=== PATIENT | male | born 1990 | race Caucasian/White ===

== ENCOUNTER 2018-04-07 23:41 | Inpatient (IN) | payer OTHER ==
[2018-04-08] MEDS ORDERED: DEXTROSE 50% 50 ML SYRINGE IV ×2 (01:00)
[2018-04-08] MEDS ORDERED: GLUCAGON 1 MG INJ IM (01:00)
[2018-04-08] MEDS ORDERED: PENDING SANTYL ORDER FOR WOUND CARE XX (01:00)
[2018-04-08] MEDS ORDERED: GLUCOSE GEL 15 GRAM TUBE BUCCAL (01:00)
[2018-04-08] MEDS ORDERED: ACETAMINOPHEN 325 MG TAB PO ×3 (01:00→08:00)
[2018-04-08] MEDS ORDERED: GLUCOSE GEL 15 GRAM TUBE PO ×2 (01:00)
[2018-04-08] MEDS: INSULIN ASPART [NOVOLOG] 3 ML PEN SC ×5 (01:10→20:57)
[2018-04-08] MEDS: HYDROCODONE/APAP (5/325) TAB PO (02:07)
[2018-04-08] MEDS: ACCU-CHEK XX (03:00)
[2018-04-08] MEDS ORDERED: ALBUTEROL/IPRATROPIUM (NEB) 3 ML AMP HHN (08:00)
[2018-04-08] MEDS ORDERED: VANCOMYCIN IV PER PHARMACY XX (08:00)
[2018-04-08] MEDS ORDERED: NACL 0.9% 3 ML SYG IV (08:00)
[2018-04-08] MEDS: ENOXAPARIN 30 MG/0.3 ML SYG SC (09:20)
[2018-04-08] MEDS: CEFEPIME 1GM/50 ML (PMX) 50 ML IVPB ×2 (09:20→20:55)
[2018-04-08 09:32] LABS: ADD MAN DIFF? NO
[2018-04-08 09:41] LABS: BASOPHILS % 0.5 % (0.0-2.0); EOSINOPHILS # 0.2 10^3/ul (0.0-0.5); EOSINOPHILS % 3.4 % (0.0-7.0); HEMATOCRIT 38.5 % (42.0-52.0); HEMOGLOBIN 13.2 g/dl (14.0-18.0); LYMPHOCYTES # 2.5 10^3/ul (0.8-2.9); LYMPHOCYTES % 38.9 % (15.0-51.0); MEAN CORPUSCULAR HGB CONC 34.3 g/dl (32.0-37.0); MEAN CORPUSCULAR VOLUME 81.6 fl (82.0-101.0); MEAN PLATELET VOLUME 8.8 fl (7.4-10.4); MONOCYTE # 0.6 10^3/ul (0.3-0.9); MONOCYTES % 8.9 % (0.0-11.0); NEUTROPHIL # 3.1 10^3/ul (1.6-7.5); PLATELET COUNT 272 10^3/UL (140-415); RED BLOOD COUNT 4.72 10^6/ul (4.70-6.10); RED CELL DISTRIBUTION WIDTH 12.9 % (11.5-14.5)
[2018-04-08 09:41] LABS: WHITE BLOOD COUNT 6.5 10^3/ul (4.8-10.8)
[2018-04-08] MEDS ORDERED: VANCOMYCIN 2 GM in SOD CHLORIDE 0.9% 500 ML IVPB (10:00)
[2018-04-08 10:07] LABS: ALANINE AMINOTRANSFERASE 26 IU/L (13-69); ALBUMIN 3.8 g/dl (3.3-4.9); ALBUMIN/GLOBULIN RATIO 0.97; ALKALINE PHOSPHATASE 68 IU/L (42-121); ANION GAP 13 (8-16); ASPARTATE AMINO TRANSFERASE 20 IU/L (15-46); BILIRUBIN,INDIRECT 0.5 mg/dl (0-1.1); BILIRUBIN,TOTAL 0.5 mg/dl (0.2-1.3); BLOOD UREA NITROGEN 14 mg/dl (7-20); CALCIUM 9.6 mg/dl (8.4-10.2); CARBON DIOXIDE 31 mmol/L (21-31); CHLORIDE 100 mmol/L (97-110); CHOL/HDL RATIO 5.8 RATIO; CHOLESTEROL 157 mg/dl (100-200); CREATININE 1.07 mg/dl (0.61-1.24); GLUCOSE 213 mg/dl (70-220); HDL CHOLESTEROL 27 mg/dl (28-63); LDL CHOLESTEROL,CALCULATED 77 mg/dl; POTASSIUM 4.9 mmol/L (3.5-5.1); SODIUM 139 mmol/L (135-144); TOTAL PROTEIN 7.7 g/dl (6.1-8.1); TRIGLYCERIDES 264 mg/dl (0-149)
[2018-04-08 10:15] LABS: HEMOGLOBIN A1C 11.1 % (0-5.9)
[2018-04-08] MEDS: VANCOMYCIN 2 GM in SOD CHLORIDE 0.9% 500 ML IVPB (11:19)
[2018-04-08] MEDS: ATORVASTATIN 20 MG TAB PO (20:55)
[2018-04-08] MEDS: VANCOMYCIN 1 GM 250 ML IVPB (22:18)
[2018-04-09] MEDS: ACCU-CHEK XX (02:13)
[2018-04-09] MEDS: VANCOMYCIN 1 GM 250 ML IVPB ×3 (05:47→21:58)
[2018-04-09 06:13] LABS: ADD MAN DIFF? NO
[2018-04-09 06:23] LABS: BASOPHILS % 0.4 % (0.0-2.0); EOSINOPHILS # 0.2 10^3/ul (0.0-0.5); EOSINOPHILS % 2.4 % (0.0-7.0); HEMATOCRIT 37.1 % (42.0-52.0); HEMOGLOBIN 12.8 g/dl (14.0-18.0); LYMPHOCYTES # 2.4 10^3/ul (0.8-2.9); MEAN CORPUSCULAR HEMOGLOBIN 27.9 pg (29.0-33.0); MEAN CORPUSCULAR HGB CONC 34.5 g/dl (32.0-37.0); MEAN PLATELET VOLUME 9.3 fl (7.4-10.4); MONOCYTE # 0.6 10^3/ul (0.3-0.9); MONOCYTES % 6.9 % (0.0-11.0); NEUTROPHIL # 5.1 10^3/ul (1.6-7.5); NEUTROPHILS % 61.1 % (39.0-77.0); PLATELET COUNT 284 10^3/UL (140-415); RED BLOOD COUNT 4.58 10^6/ul (4.70-6.10)
[2018-04-09 06:23] LABS: WHITE BLOOD COUNT 8.4 10^3/ul (4.8-10.8)
[2018-04-09 06:36] LABS: HEMOGLOBIN A1C 10.9 % (0-5.9)
[2018-04-09 06:46] LABS: ALANINE AMINOTRANSFERASE 28 IU/L (13-69); ALBUMIN 3.8 g/dl (3.3-4.9); ALBUMIN/GLOBULIN RATIO 0.95; ALKALINE PHOSPHATASE 68 IU/L (42-121); ANION GAP 12 (8-16); ASPARTATE AMINO TRANSFERASE 20 IU/L (15-46); BILIRUBIN,INDIRECT 0.3 mg/dl (0-1.1); BILIRUBIN,TOTAL 0.3 mg/dl (0.2-1.3); BLOOD UREA NITROGEN 20 mg/dl (7-20); CALCIUM 9.4 mg/dl (8.4-10.2); CARBON DIOXIDE 28 mmol/L (21-31); CHLORIDE 103 mmol/L (97-110); CHOL/HDL RATIO 5.5 RATIO; CHOLESTEROL 151 mg/dl (100-200); CREATININE 1.07 mg/dl (0.61-1.24); GLUCOSE 171 mg/dl (70-220); HDL CHOLESTEROL 27 mg/dl (28-63); LDL CHOLESTEROL,CALCULATED 65 mg/dl; MAGNESIUM 1.6 mg/dl (1.7-2.5); PHOSPHORUS 4.4 mg/dl (2.5-4.9); POTASSIUM 4.3 mmol/L (3.5-5.1); SODIUM 139 mmol/L (135-144); TOTAL PROTEIN 7.8 g/dl (6.1-8.1); TRIGLYCERIDES 297 mg/dl (0-149)
[2018-04-09] MEDS: CEFEPIME 1GM/50 ML (PMX) 50 ML IVPB ×2 (08:14→20:29)
[2018-04-09] MEDS: INSULIN ASPART [NOVOLOG] 3 ML PEN SC ×4 (08:15→21:00)
[2018-04-09] MEDS: ENOXAPARIN 30 MG/0.3 ML SYG SC (08:16)
[2018-04-09] MEDS: HYDROCODONE/APAP (5/325) TAB PO (08:25)
[2018-04-09] MEDS: INSULIN GLARGINE [LANtus] 3 ML PEN SC (10:30)
[2018-04-09] MEDS: MAGNESIUM OXIDE 400 MG TAB PO (10:30)
[2018-04-09] MEDS ORDERED: COLLAGENASE 5 GM (UD JAR) TOP (13:30)
[2018-04-09 13:44] LABS: VANCOMYCIN,TROUGH 14.9 ug/ml (10.0-20.0)
[2018-04-09] MEDS: ATORVASTATIN 20 MG TAB PO (20:30)
[2018-04-10] MEDS: ACCU-CHEK XX (02:00)
[2018-04-10] MEDS: VANCOMYCIN 1 GM 250 ML IVPB ×3 (05:35→22:03)
[2018-04-10 06:23] LABS: ADD MAN DIFF? NO
[2018-04-10 06:34] LABS: WHITE BLOOD COUNT 7.4 10^3/ul (4.8-10.8)
[2018-04-10 06:34] LABS: BASOPHILS % 0.5 % (0.0-2.0); EOSINOPHILS # 0.2 10^3/ul (0.0-0.5); EOSINOPHILS % 3.1 % (0.0-7.0); HEMATOCRIT 36.9 % (42.0-52.0); HEMOGLOBIN 12.7 g/dl (14.0-18.0); LYMPHOCYTES # 2.7 10^3/ul (0.8-2.9); LYMPHOCYTES % 35.7 % (15.0-51.0); MEAN CORPUSCULAR HEMOGLOBIN 27.7 pg (29.0-33.0); MEAN CORPUSCULAR HGB CONC 34.4 g/dl (32.0-37.0); MEAN CORPUSCULAR VOLUME 80.4 fl (82.0-101.0); MEAN PLATELET VOLUME 8.9 fl (7.4-10.4); MONOCYTE # 0.6 10^3/ul (0.3-0.9); MONOCYTES % 7.9 % (0.0-11.0); NEUTROPHIL # 3.9 10^3/ul (1.6-7.5); NEUTROPHILS % 52.5 % (39.0-77.0); PLATELET COUNT 272 10^3/UL (140-415); RED BLOOD COUNT 4.59 10^6/ul (4.70-6.10); RED CELL DISTRIBUTION WIDTH 12.8 % (11.5-14.5)
[2018-04-10 07:07] LABS: ANION GAP 13 (8-16); BLOOD UREA NITROGEN 18 mg/dl (7-20); CALCIUM 9.4 mg/dl (8.4-10.2); CARBON DIOXIDE 26 mmol/L (21-31); CHLORIDE 104 mmol/L (97-110); CREATININE 0.99 mg/dl (0.61-1.24); GLUCOSE 118 mg/dl (70-220); POTASSIUM 4.1 mmol/L (3.5-5.1); SODIUM 139 mmol/L (135-144)
[2018-04-10] MEDS: INSULIN ASPART [NOVOLOG] 3 ML PEN SC ×4 (08:00→20:55)
[2018-04-10] MEDS: CEFEPIME 1GM/50 ML (PMX) 50 ML IVPB ×2 (08:11→20:56)
[2018-04-10] MEDS: COLLAGENASE 5 GM (UD JAR) TOP (08:11)
[2018-04-10] MEDS: INSULIN GLARGINE [LANtus] 3 ML PEN SC (08:12)
[2018-04-10] MEDS: ENOXAPARIN 30 MG/0.3 ML SYG SC (08:13)
[2018-04-10] MEDS: HYDROCODONE/APAP (5/325) TAB PO (19:57)
[2018-04-10] MEDS: ATORVASTATIN 20 MG TAB PO (20:56)
[2018-04-11] MEDS: ACCU-CHEK XX (01:06)
[2018-04-11 05:53] LABS: ADD MAN DIFF? NO
[2018-04-11 05:55] LABS: BASOPHILS % 0.6 % (0.0-2.0); EOSINOPHILS # 0.3 10^3/ul (0.0-0.5); EOSINOPHILS % 3.8 % (0.0-7.0); HEMOGLOBIN 12.6 g/dl (14.0-18.0); LYMPHOCYTES # 2.8 10^3/ul (0.8-2.9); MEAN CORPUSCULAR HEMOGLOBIN 27.6 pg (29.0-33.0); MEAN CORPUSCULAR HGB CONC 34.1 g/dl (32.0-37.0); MEAN CORPUSCULAR VOLUME 81.1 fl (82.0-101.0); MEAN PLATELET VOLUME 8.9 fl (7.4-10.4); MONOCYTE # 0.7 10^3/ul (0.3-0.9); MONOCYTES % 9.7 % (0.0-11.0); NEUTROPHIL # 3.4 10^3/ul (1.6-7.5); NEUTROPHILS % 46.6 % (39.0-77.0); PLATELET COUNT 265 10^3/UL (140-415); RED BLOOD COUNT 4.56 10^6/ul (4.70-6.10)
[2018-04-11 05:55] LABS: WHITE BLOOD COUNT 7.2 10^3/ul (4.8-10.8)
[2018-04-11 06:04] LABS: MAGNESIUM 1.7 mg/dl (1.7-2.5)
[2018-04-11 06:04] LABS: PHOSPHORUS 4.3 mg/dl (2.5-4.9)
[2018-04-11] MEDS: VANCOMYCIN 1 GM 250 ML IVPB ×3 (06:05→22:17)
[2018-04-11 06:07] LABS: ANION GAP 15 (8-16); BLOOD UREA NITROGEN 19 mg/dl (7-20); CALCIUM 9.5 mg/dl (8.4-10.2); CARBON DIOXIDE 28 mmol/L (21-31); CHLORIDE 103 mmol/L (97-110); CREATININE 1.11 mg/dl (0.61-1.24); GLUCOSE 120 mg/dl (70-220); SODIUM 141 mmol/L (135-144)
[2018-04-11] MEDS: INSULIN ASPART [NOVOLOG] 3 ML PEN SC ×4 (08:00→21:14)
[2018-04-11] MEDS: INSULIN GLARGINE [LANtus] 3 ML PEN SC ×2 (08:00→08:08)
[2018-04-11] MEDS: ENOXAPARIN 30 MG/0.3 ML SYG SC (08:09)
[2018-04-11] MEDS: COLLAGENASE 5 GM (UD JAR) TOP (08:12)
[2018-04-11] MEDS: CEFEPIME 1GM/50 ML (PMX) 50 ML IVPB ×2 (09:18→21:13)
[2018-04-11 09:51] LABS: IRON 66 ug/dl (35-150)
[2018-04-11 10:00] LABS: % IRON SATURATION 23 % SAT (22-52); TOTAL IRON BINDING CAPACITY 292 ug/dl (241-421)
[2018-04-11] MEDS: ATORVASTATIN 20 MG TAB PO (21:13)
[2018-04-11 22:01] LABS: VANCOMYCIN,TROUGH 13.4 ug/ml (10.0-20.0)
[2018-04-12] MEDS: HYDROCODONE/APAP (5/325) TAB PO (01:05)
[2018-04-12] MEDS: ACCU-CHEK XX (02:00)
[2018-04-12 05:39] LABS: ADD MAN DIFF? NO
[2018-04-12 05:51] LABS: WHITE BLOOD COUNT 7.2 10^3/ul (4.8-10.8)
[2018-04-12 05:51] LABS: BASOPHILS % 0.6 % (0.0-2.0); EOSINOPHILS # 0.2 10^3/ul (0.0-0.5); EOSINOPHILS % 2.8 % (0.0-7.0); HEMOGLOBIN 12.3 g/dl (14.0-18.0); LYMPHOCYTES # 2.9 10^3/ul (0.8-2.9); LYMPHOCYTES % 39.8 % (15.0-51.0); MEAN CORPUSCULAR HEMOGLOBIN 27.6 pg (29.0-33.0); MEAN CORPUSCULAR HGB CONC 34.2 g/dl (32.0-37.0); MEAN CORPUSCULAR VOLUME 80.7 fl (82.0-101.0); MEAN PLATELET VOLUME 8.9 fl (7.4-10.4); MONOCYTE # 0.6 10^3/ul (0.3-0.9); MONOCYTES % 8.3 % (0.0-11.0); NEUTROPHIL # 3.5 10^3/ul (1.6-7.5); NEUTROPHILS % 48.4 % (39.0-77.0); PLATELET COUNT 282 10^3/UL (140-415); RED BLOOD COUNT 4.46 10^6/ul (4.70-6.10); RED CELL DISTRIBUTION WIDTH 12.6 % (11.5-14.5)
[2018-04-12] MEDS: VANCOMYCIN 1 GM 250 ML IVPB (06:07)
[2018-04-12 06:10] LABS: MAGNESIUM 1.7 mg/dl (1.7-2.5)
[2018-04-12 06:10] LABS: PHOSPHORUS 4.5 mg/dl (2.5-4.9)
[2018-04-12 06:17] LABS: ANION GAP 9 (8-16); BLOOD UREA NITROGEN 19 mg/dl (7-20); CALCIUM 9.2 mg/dl (8.4-10.2); CARBON DIOXIDE 28 mmol/L (21-31); CHLORIDE 106 mmol/L (97-110); GLUCOSE 139 mg/dl (70-220); POTASSIUM 4.2 mmol/L (3.5-5.1); SODIUM 139 mmol/L (135-144)
[2018-04-12] MEDS: INSULIN ASPART [NOVOLOG] 3 ML PEN SC ×4 (08:00→21:00)
[2018-04-12] MEDS: INSULIN GLARGINE [LANtus] 3 ML PEN SC (08:22)
[2018-04-12] MEDS: ONDANSETRON 4 MG INJ IV (08:42)
[2018-04-12] MEDS: CEFEPIME 1GM/50 ML (PMX) 50 ML IVPB ×2 (09:21→21:14)
[2018-04-12] MEDS: COLLAGENASE 5 GM (UD JAR) TOP (09:21)
[2018-04-12] MEDS: ENOXAPARIN 30 MG/0.3 ML SYG SC (09:21)
[2018-04-12] MEDS: BISACODYL (EC) 5 MG TAB PO (14:10)
[2018-04-12] MEDS: VANCOMYCIN 1.25 GM in SOD CHLORIDE 0.9% 250 ML IVPB ×2 (15:37→23:01)
[2018-04-12] MEDS: POLYETHYLENE GLYCOL 17 GM PACKET PO (21:14)
[2018-04-12] MEDS: ATORVASTATIN 20 MG TAB PO (21:14)
[2018-04-13] MEDS: ACCU-CHEK XX (01:52)
[2018-04-13 05:53] LABS: ADD MAN DIFF? NO
[2018-04-13 05:58] LABS: WHITE BLOOD COUNT 7.7 10^3/ul (4.8-10.8)
[2018-04-13 05:58] LABS: BASOPHILS % 0.3 % (0.0-2.0); EOSINOPHILS # 0.2 10^3/ul (0.0-0.5); EOSINOPHILS % 2.5 % (0.0-7.0); HEMATOCRIT 37.1 % (42.0-52.0); HEMOGLOBIN 12.8 g/dl (14.0-18.0); LYMPHOCYTES # 2.9 10^3/ul (0.8-2.9); LYMPHOCYTES % 38.2 % (15.0-51.0); MEAN CORPUSCULAR HEMOGLOBIN 27.8 pg (29.0-33.0); MEAN CORPUSCULAR HGB CONC 34.5 g/dl (32.0-37.0); MEAN CORPUSCULAR VOLUME 80.7 fl (82.0-101.0); MEAN PLATELET VOLUME 8.7 fl (7.4-10.4); MONOCYTE # 0.6 10^3/ul (0.3-0.9); MONOCYTES % 7.3 % (0.0-11.0); NEUTROPHIL # 3.9 10^3/ul (1.6-7.5); NEUTROPHILS % 51.4 % (39.0-77.0); PLATELET COUNT 293 10^3/UL (140-415); RED CELL DISTRIBUTION WIDTH 12.7 % (11.5-14.5)
[2018-04-13 06:19] LABS: MAGNESIUM 1.6 mg/dl (1.7-2.5)
[2018-04-13 06:24] LABS: ANION GAP 13 (8-16); BLOOD UREA NITROGEN 15 mg/dl (7-20); CALCIUM 9.3 mg/dl (8.4-10.2); CARBON DIOXIDE 28 mmol/L (21-31); CHLORIDE 103 mmol/L (97-110); CREATININE 1.04 mg/dl (0.61-1.24); GLUCOSE 118 mg/dl (70-220); POTASSIUM 3.9 mmol/L (3.5-5.1); SODIUM 140 mmol/L (135-144)
[2018-04-13 06:26] LABS: INR 1.03; PROTIME 13.6 Sec (11.9-14.9); PT RATIO 1.1
[2018-04-13 06:27] LABS: PARTIAL THROMBOPLASTIN TIME 32.2 Sec (25.0-35.0)
[2018-04-13] MEDS: VANCOMYCIN 1.25 GM in SOD CHLORIDE 0.9% 250 ML IVPB ×2 (06:50→14:11)
[2018-04-13] MEDS ORDERED: LIDOCAINE 1% (MPF) 30 ML INJ (06:59)
[2018-04-13] MEDS ORDERED: HYDROmorphONE 1 MG/5 ML IV SYRINGE IV ×3 (07:30)
[2018-04-13] MEDS ORDERED: LABETALOL HCL 20MG INJ IV (07:30)
[2018-04-13] MEDS ORDERED: FENTAnyl 50 MCG/ML VIAL IV ×3 (07:30)
[2018-04-13] MEDS ORDERED: PROCHLORPERAZINE 10 MG INJ IV (07:30)
[2018-04-13] MEDS ORDERED: MEPERIDINE 25 MG INJ IV (07:30)
[2018-04-13] MEDS ORDERED: DIPHENHYDRAMINE 50 MG INJ IV (07:30)
[2018-04-13] MEDS ORDERED: ONDANSETRON 4 MG INJ IV (07:30)
[2018-04-13] MEDS ORDERED: hydrALAzine 20 MG INJ IV (07:30)
[2018-04-13] MEDS ORDERED: MIDAZOLAM 1 MG/ML 2 ML INJ (07:55)
[2018-04-13] MEDS ORDERED: PROPOFOL 20 ML ×2 (07:55→08:07)
[2018-04-13] MEDS ORDERED: LIDOCAINE 2% (SDV) 5 ML INJ (07:55)
[2018-04-13] MEDS: INSULIN ASPART [NOVOLOG] 3 ML PEN SC ×4 (08:00→20:40)
[2018-04-13] MEDS: INSULIN GLARGINE [LANtus] 3 ML PEN SC ×2 (08:00→10:17)
[2018-04-13] MEDS ORDERED: METOCLOPRAMIDE 10 MG INJ (08:03)
[2018-04-13] MEDS ORDERED: ONDANSETRON 4 MG INJ (08:03)
[2018-04-13] MEDS ORDERED: BUPIVACAINE 0.25% (MPF) 30 ML INJ (08:03)
[2018-04-13] MEDS ORDERED: FAMOTIDINE 20 MG INJ (08:03)
[2018-04-13] MEDS ORDERED: FENTAnyl 50 MCG/ML VIAL (08:21)
[2018-04-13] MEDS: COLLAGENASE 5 GM (UD JAR) TOP (08:34)
[2018-04-13] MEDS: POLYETHYLENE GLYCOL 17 GM PACKET PO ×2 (08:34→20:38)
[2018-04-13] MEDS ORDERED: EPHEDrine SULFATE 50 MG/5 ML SYG (08:48)
[2018-04-13] MEDS: ENOXAPARIN 30 MG/0.3 ML SYG SC (09:00)
[2018-04-13] MEDS: POLYMYXIN/BACITRACIN 1L IRRIG (09:04)
[2018-04-13] MEDS: CEFEPIME 1GM/50 ML (PMX) 50 ML IVPB ×2 (10:16→20:38)
[2018-04-13] MEDS: HYDROCODONE/APAP (5/325) TAB PO (10:18)
[2018-04-13] MEDS: MAGNESIUM SULFATE 2 GM/50 ML 50 ML IVPB (17:55)
[2018-04-13] MEDS: ATORVASTATIN 20 MG TAB PO (20:38)
[2018-04-13 23:18] LABS: VANCOMYCIN,TROUGH 24.4 ug/ml (10.0-20.0)
[2018-04-14] MEDS: HYDROCODONE/APAP (5/325) TAB PO ×3 (01:17→22:00)
[2018-04-14] MEDS: ACCU-CHEK XX (02:00)
[2018-04-14 05:54] LABS: ADD MAN DIFF? NO
[2018-04-14 05:55] LABS: BASOPHILS % 0.6 % (0.0-2.0); EOSINOPHILS # 0.2 10^3/ul (0.0-0.5); EOSINOPHILS % 2.2 % (0.0-7.0); HEMATOCRIT 33.8 % (42.0-52.0); HEMOGLOBIN 11.6 g/dl (14.0-18.0); LYMPHOCYTES # 2.5 10^3/ul (0.8-2.9); LYMPHOCYTES % 34.6 % (15.0-51.0); MEAN CORPUSCULAR HEMOGLOBIN 27.6 pg (29.0-33.0); MEAN CORPUSCULAR HGB CONC 34.3 g/dl (32.0-37.0); MEAN CORPUSCULAR VOLUME 80.3 fl (82.0-101.0); MEAN PLATELET VOLUME 8.9 fl (7.4-10.4); MONOCYTE # 0.6 10^3/ul (0.3-0.9); MONOCYTES % 8.5 % (0.0-11.0); NEUTROPHIL # 3.9 10^3/ul (1.6-7.5); NEUTROPHILS % 53.8 % (39.0-77.0); PLATELET COUNT 258 10^3/UL (140-415); RED BLOOD COUNT 4.21 10^6/ul (4.70-6.10); RED CELL DISTRIBUTION WIDTH 12.9 % (11.5-14.5)
[2018-04-14 05:55] LABS: WHITE BLOOD COUNT 7.2 10^3/ul (4.8-10.8)
[2018-04-14 06:15] LABS: ANION GAP 11 (8-16); BLOOD UREA NITROGEN 17 mg/dl (7-20); CALCIUM 8.9 mg/dl (8.4-10.2); CARBON DIOXIDE 29 mmol/L (21-31); CHLORIDE 104 mmol/L (97-110); CREATININE 1.47 mg/dl (0.61-1.24); GLUCOSE 143 mg/dl (70-220); POTASSIUM 3.9 mmol/L (3.5-5.1); SODIUM 140 mmol/L (135-144)
[2018-04-14 06:17] LABS: PHOSPHORUS 4.4 mg/dl (2.5-4.9)
[2018-04-14 06:17] LABS: MAGNESIUM 1.9 mg/dl (1.7-2.5)
[2018-04-14] MEDS: INSULIN ASPART [NOVOLOG] 3 ML PEN SC ×4 (08:00→20:41)
[2018-04-14] MEDS: INSULIN GLARGINE [LANtus] 3 ML PEN SC (08:06)
[2018-04-14] MEDS: ENOXAPARIN 30 MG/0.3 ML SYG SC (08:07)
[2018-04-14] MEDS: POLYETHYLENE GLYCOL 17 GM PACKET PO ×2 (08:07→20:39)
[2018-04-14] MEDS: CEFEPIME 1GM/50 ML (PMX) 50 ML IVPB ×3 (08:45→20:39)
[2018-04-14] MEDS: COLLAGENASE 5 GM (UD JAR) TOP (09:00)
[2018-04-14] MEDS ORDERED: VANCOMYCIN 1.5 GM in SOD CHLORIDE 0.9% 250 ML IVPB (11:00)
[2018-04-14] MEDS: VANCOMYCIN 1 GM 250 ML IVPB (11:18)
[2018-04-14] MEDS: SOD CHLORIDE 0.9% 1,000 ML IV (17:06)
[2018-04-14] MEDS: ATORVASTATIN 20 MG TAB PO (20:39)
[2018-04-15] MEDS: VANCOMYCIN 1 GM 250 ML IVPB ×2 (00:05→12:10)
[2018-04-15] MEDS: ACCU-CHEK XX (01:56)
[2018-04-15 06:11] LABS: ADD MAN DIFF? NO
[2018-04-15 06:19] LABS: BASOPHILS % 0.5 % (0.0-2.0); EOSINOPHILS # 0.2 10^3/ul (0.0-0.5); EOSINOPHILS % 3.1 % (0.0-7.0); HEMATOCRIT 34.6 % (42.0-52.0); HEMOGLOBIN 11.9 g/dl (14.0-18.0); LYMPHOCYTES # 2.8 10^3/ul (0.8-2.9); LYMPHOCYTES % 37.6 % (15.0-51.0); MEAN CORPUSCULAR HEMOGLOBIN 27.8 pg (29.0-33.0); MEAN CORPUSCULAR HGB CONC 34.4 g/dl (32.0-37.0); MEAN CORPUSCULAR VOLUME 80.8 fl (82.0-101.0); MEAN PLATELET VOLUME 8.9 fl (7.4-10.4); MONOCYTE # 0.7 10^3/ul (0.3-0.9); MONOCYTES % 8.9 % (0.0-11.0); NEUTROPHIL # 3.6 10^3/ul (1.6-7.5); NEUTROPHILS % 49.6 % (39.0-77.0); PLATELET COUNT 281 10^3/UL (140-415); RED BLOOD COUNT 4.28 10^6/ul (4.70-6.10); RED CELL DISTRIBUTION WIDTH 12.8 % (11.5-14.5)
[2018-04-15 06:19] LABS: WHITE BLOOD COUNT 7.3 10^3/ul (4.8-10.8)
[2018-04-15 06:48] LABS: ANION GAP 8 (8-16); BLOOD UREA NITROGEN 18 mg/dl (7-20); CALCIUM 8.8 mg/dl (8.4-10.2); CARBON DIOXIDE 27 mmol/L (21-31); CHLORIDE 108 mmol/L (97-110); CREATININE 1.23 mg/dl (0.61-1.24); GLUCOSE 169 mg/dl (70-220); POTASSIUM 4.1 mmol/L (3.5-5.1); SODIUM 139 mmol/L (135-144)
[2018-04-15 07:02] LABS: MAGNESIUM 1.6 mg/dl (1.7-2.5)
[2018-04-15] MEDS: INSULIN ASPART [NOVOLOG] 3 ML PEN SC ×4 (08:18→23:06)
[2018-04-15] MEDS: ENOXAPARIN 30 MG/0.3 ML SYG SC (08:19)
[2018-04-15] MEDS: INSULIN GLARGINE [LANtus] 3 ML PEN SC (08:19)
[2018-04-15] MEDS: CEFEPIME 1GM/50 ML (PMX) 50 ML IVPB ×2 (08:20→23:04)
[2018-04-15] MEDS: CHOLECALCIFEROL 1,000 UNIT TAB PO (08:20)
[2018-04-15] MEDS: POLYETHYLENE GLYCOL 17 GM PACKET PO ×2 (08:20→23:04)
[2018-04-15] MEDS: COLLAGENASE 5 GM (UD JAR) TOP (08:20)
[2018-04-15] MEDS: ONDANSETRON 4 MG INJ IV (10:43)
[2018-04-15] MEDS: MAGNESIUM SULFATE 2 GM/50 ML 50 ML IVPB (10:43)
[2018-04-15] MEDS: ATORVASTATIN 20 MG TAB PO (23:04)
[2018-04-16] MEDS: VANCOMYCIN 1 GM 250 ML IVPB ×2 (00:29→13:55)
[2018-04-16] MEDS: ACCU-CHEK XX (02:00)
[2018-04-16 06:09] LABS: ADD MAN DIFF? NO
[2018-04-16 06:26] LABS: BASOPHILS % 0.5 % (0.0-2.0); EOSINOPHILS # 0.2 10^3/ul (0.0-0.5); EOSINOPHILS % 2.6 % (0.0-7.0); HEMATOCRIT 33.8 % (42.0-52.0); HEMOGLOBIN 11.9 g/dl (14.0-18.0); LYMPHOCYTES # 2.4 10^3/ul (0.8-2.9); LYMPHOCYTES % 31.3 % (15.0-51.0); MEAN CORPUSCULAR HEMOGLOBIN 28.4 pg (29.0-33.0); MEAN CORPUSCULAR HGB CONC 35.2 g/dl (32.0-37.0); MEAN CORPUSCULAR VOLUME 80.7 fl (82.0-101.0); MEAN PLATELET VOLUME 8.9 fl (7.4-10.4); MONOCYTE # 0.6 10^3/ul (0.3-0.9); MONOCYTES % 7.8 % (0.0-11.0); NEUTROPHIL # 4.5 10^3/ul (1.6-7.5); NEUTROPHILS % 57.5 % (39.0-77.0); PLATELET COUNT 271 10^3/UL (140-415); RED BLOOD COUNT 4.19 10^6/ul (4.70-6.10); RED CELL DISTRIBUTION WIDTH 12.8 % (11.5-14.5)
[2018-04-16 06:26] LABS: WHITE BLOOD COUNT 7.8 10^3/ul (4.8-10.8)
[2018-04-16 06:54] LABS: ANION GAP 11 (8-16); BLOOD UREA NITROGEN 16 mg/dl (7-20); CALCIUM 8.9 mg/dl (8.4-10.2); CARBON DIOXIDE 25 mmol/L (21-31); CHLORIDE 109 mmol/L (97-110); CREATININE 1.19 mg/dl (0.61-1.24); GLUCOSE 111 mg/dl (70-220); POTASSIUM 4.1 mmol/L (3.5-5.1); SODIUM 141 mmol/L (135-144)
[2018-04-16 07:18] LABS: MAGNESIUM 1.7 mg/dl (1.7-2.5)
[2018-04-16] MEDS: INSULIN ASPART [NOVOLOG] 3 ML PEN SC ×4 (08:00→21:00)
[2018-04-16] MEDS: INSULIN GLARGINE [LANtus] 3 ML PEN SC (08:28)
[2018-04-16] MEDS: ENOXAPARIN 30 MG/0.3 ML SYG SC (08:29)
[2018-04-16] MEDS: CEFEPIME 1GM/50 ML (PMX) 50 ML IVPB ×2 (08:29→21:19)
[2018-04-16] MEDS: CHOLECALCIFEROL 1,000 UNIT TAB PO (08:29)
[2018-04-16] MEDS: COLLAGENASE 5 GM (UD JAR) TOP (09:00)
[2018-04-16] MEDS: POLYETHYLENE GLYCOL 17 GM PACKET PO ×2 (09:00→21:19)
[2018-04-16 14:13] LABS: VANCOMYCIN,TROUGH 14.6 ug/ml (10.0-20.0)
[2018-04-16] MEDS: ATORVASTATIN 20 MG TAB PO (21:19)
[2018-04-17] MEDS: VANCOMYCIN 1 GM 250 ML IVPB ×2 (00:41→13:49)
[2018-04-17] MEDS: HYDROCODONE/APAP (5/325) TAB PO ×2 (00:47→08:38)
[2018-04-17] MEDS: ACCU-CHEK XX (02:00)
[2018-04-17 06:10] LABS: ADD MAN DIFF? NO
[2018-04-17 06:20] LABS: BASOPHIL # 0.1 10^3/ul (0.0-0.1); BASOPHILS % 0.7 % (0.0-2.0); EOSINOPHILS # 0.2 10^3/ul (0.0-0.5); EOSINOPHILS % 2.7 % (0.0-7.0); HEMATOCRIT 33.8 % (42.0-52.0); HEMOGLOBIN 11.7 g/dl (14.0-18.0); LYMPHOCYTES # 2.9 10^3/ul (0.8-2.9); MEAN CORPUSCULAR HEMOGLOBIN 27.9 pg (29.0-33.0); MEAN CORPUSCULAR HGB CONC 34.6 g/dl (32.0-37.0); MEAN CORPUSCULAR VOLUME 80.7 fl (82.0-101.0); MEAN PLATELET VOLUME 8.9 fl (7.4-10.4); MONOCYTE # 0.6 10^3/ul (0.3-0.9); MONOCYTES % 7.9 % (0.0-11.0); NEUTROPHIL # 3.8 10^3/ul (1.6-7.5); NEUTROPHILS % 50.4 % (39.0-77.0); PLATELET COUNT 281 10^3/UL (140-415); RED BLOOD COUNT 4.19 10^6/ul (4.70-6.10); RED CELL DISTRIBUTION WIDTH 12.8 % (11.5-14.5)
[2018-04-17 06:20] LABS: WHITE BLOOD COUNT 7.5 10^3/ul (4.8-10.8)
[2018-04-17 06:35] LABS: PHOSPHORUS 4.7 mg/dl (2.5-4.9)
[2018-04-17 06:35] LABS: MAGNESIUM 1.5 mg/dl (1.7-2.5)
[2018-04-17 06:38] LABS: PROTIME 13.3 Sec (11.9-14.9)
[2018-04-17 06:39] LABS: PARTIAL THROMBOPLASTIN TIME 32.6 Sec (25.0-35.0)
[2018-04-17 06:44] LABS: ANION GAP 10 (8-16); BLOOD UREA NITROGEN 18 mg/dl (7-20); CARBON DIOXIDE 28 mmol/L (21-31); CHLORIDE 106 mmol/L (97-110); CREATININE 1.24 mg/dl (0.61-1.24); GLUCOSE 133 mg/dl (70-220); POTASSIUM 3.8 mmol/L (3.5-5.1); SODIUM 140 mmol/L (135-144)
[2018-04-17] MEDS: INSULIN ASPART [NOVOLOG] 3 ML PEN SC ×4 (08:00→20:59)
[2018-04-17] MEDS: INSULIN GLARGINE [LANtus] 3 ML PEN SC (08:02)
[2018-04-17] MEDS: ENOXAPARIN 30 MG/0.3 ML SYG SC (08:03)
[2018-04-17] MEDS: POLYETHYLENE GLYCOL 17 GM PACKET PO ×2 (08:03→20:52)
[2018-04-17] MEDS: CHOLECALCIFEROL 1,000 UNIT TAB PO (08:03)
[2018-04-17] MEDS: CEFEPIME 1GM/50 ML (PMX) 50 ML IVPB ×2 (08:03→20:51)
[2018-04-17] MEDS: COLLAGENASE 5 GM (UD JAR) TOP (08:09)
[2018-04-17] MEDS: LIDOCAINE 1% (MPF) 5 ML VIAL SC (11:30)
[2018-04-17] MEDS: MAGNESIUM SULFATE 2 GM/50 ML 50 ML IVPB (16:53)
[2018-04-17] MEDS: ATORVASTATIN 20 MG TAB PO (20:52)
[2018-04-18] MEDS: HYDROCODONE/APAP (5/325) TAB PO
[2018-04-18] MEDS: VANCOMYCIN 1 GM 250 ML IVPB ×2 (01:47→11:56)
[2018-04-18] MEDS: ACCU-CHEK XX (02:00)
[2018-04-18] MEDS: INSULIN ASPART [NOVOLOG] 3 ML PEN SC ×2 (08:00→11:56)
[2018-04-18] MEDS: INSULIN GLARGINE [LANtus] 3 ML PEN SC (08:06)
[2018-04-18] MEDS: ENOXAPARIN 30 MG/0.3 ML SYG SC (08:06)
[2018-04-18] MEDS: CHOLECALCIFEROL 1,000 UNIT TAB PO (08:07)
[2018-04-18] MEDS: CEFEPIME 1GM/50 ML (PMX) 50 ML IVPB (08:07)
[2018-04-18] MEDS: COLLAGENASE 5 GM (UD JAR) TOP (08:11)
[2018-04-18] MEDS: POLYETHYLENE GLYCOL 17 GM PACKET PO (08:11)
== END 2018-04-18 15:45 | disposition home health service (06) | DRG 982 ==
LOC: PP2 23:41
PROVIDERS: Internal Medicine
PROC: 0KBW0ZZ Excision of Left Foot Muscle, Open Approach (ICD-10-PCS; principal; 2018-04-13 07:30)
PROC: 02HV33Z Insertion of Infusion Device into Superior Vena Cava, Percutaneous Approach (ICD-10-PCS; 2018-04-13 07:50)
DX: E11.69 Type 2 diabetes mellitus with other specified complication (principal); M86.8X8 Other osteomyelitis, other site; E11.621 Type 2 diabetes mellitus with foot ulcer; Z89.421 Acquired absence of other right toe(s); I10 Essential (primary) hypertension; E78.1 Pure hyperglyceridemia; E66.9 Obesity, unspecified; Z68.38 Body mass index [BMI] 38.0-38.9, adult; D64.9 Anemia, unspecified; E11.65 Type 2 diabetes mellitus with hyperglycemia; E11.42 Type 2 diabetes mellitus with diabetic polyneuropathy; L97.523 Non-pressure chronic ulcer of other part of left foot with necrosis of muscle; L97.522 Non-pressure chronic ulcer of other part of left foot with fat layer exposed; I73.9 Peripheral vascular disease, unspecified; B96.4 Proteus (mirabilis) (morganii) as the cause of diseases classified elsewhere; B95.61 Methicillin susceptible Staphylococcus aureus infection as the cause of diseases classified elsewhere; M20.42 Other hammer toe(s) (acquired), left foot
CPT/HCPCS: 36569; 76937; 80048; 80053; 80061; 80202; 82306; 82652; 82728; 82962; 83036; 83540; 83735; 84100; 85025; 85610; 85730; 87070; 87081; 93970; 97161